=== PATIENT | male | born 1950 | race Caucasian/White ===

== ENCOUNTER 2021-10-21 08:38 | Outpatient (REF) | payer MEDICARE, SELFPAY ==
[2021-10-21 10:33] LABS: MANUAL DIFF FLAG NO
[2021-10-21 10:44] LABS: Basophils Absolute Auto 0.1 X10*3/uL (0.0-0.2); Basophils Percent Auto 0.9 % (0-2); Eosinophils Absolute Auto 0.3 X10*3/uL (0.0-0.4); Eosinophils Percent Auto 4.9 % (0-4); Hematocrit 36.5 % (42.0-52.0); Hemoglobin 11.7 g/dl (14.0-18.0); Imm Gran Abs Auto 0.03 X10*3/uL (0.00-0.03); Imm Gran Pct Auto 0.5 % (0.0-0.4); Lymphocytes Absolute Auto 1.4 X10*3/uL (1.2-4.9); Lymphocytes Percent Auto 21.8 % (20-40); Mean Corpuscular HGB Conc 32.1 g/dl (31.0-36.0); Mean Corpuscular Hemoglobin 30.3 pg (27.0-33.0); Mean Corpuscular Volume 94.6 fL (80.0-98.0); Mean Platelet Volume 9.7 fL (9.4-12.4); Monocytes Absolute Auto 0.5 X10*3/uL (0.1-1.2); Monocytes Percent Auto 8.1 % (2-11); Neutrophils Absolute Auto 4.1 x10*3/uL (2.0-8.3); Neutrophils Percent Auto 63.8 % (45-73); Platelet Count 499 X10*3/uL (160-400); Red Blood Count 3.86 X10*6/uL (4.60-5.80); Red Cell Distribution Width 14.6 % (11.0-16.0); White Blood Count 6.4 X10*3/uL (4.8-10.8)
[2021-10-21 11:18] LABS: Alanine Aminotransferase 31 U/L (0-40); Alkaline Phosphatase 87 U/L (39-117); Anion Gap 12 (12-20); Aspartate Amino Transferase 28 U/L (5-37); Bilirubin Total < 0.2 mg/dL (0.0-1.0); Blood Urea Nitrogen 23 mg/dL (9-16); Calcium 9.3 mg/dL (8.4-10.2); Carbon Dioxide 22 mmol/L (22-29); Chloride 108 mmol/L (96-108); Cholesterol 156 mg/dL; Estimated Glomerular Filt Rate > 60; Glucose Fasting 86 mg/dL (60-99); HDL Cholesterol 39 mg/dL; LDL Cholesterol Calculated 108 mg/dl; Potassium 4.9 mmol/L (3.3-5.1); Sodium 137 mmol/L (135-145); Total Protein 6.7 g/dL (6.5-8.0); Triglycerides 46 mg/dL
== END 2021-10-21 08:39 | disposition home or self-care (01) ==
LOC: HO.10HDL 08:38
PROVIDERS: Visit Provider Internal Medicine
DX: Z12.5 Encounter for screening for malignant neoplasm of prostate (principal); I12.9 Hypertensive chronic kidney disease with stage 1 through stage 4 chronic kidney disease, or unspecified chronic kidney disease; N18.9 Chronic kidney disease, unspecified; M19.90 Unspecified osteoarthritis, unspecified site
CPT/HCPCS: 36415; 80053; 80061; 84153; 85025

== ENCOUNTER → 2021-11-24 13:13 | Outpatient (REF) | payer MEDICARE, SELFPAY ==
--- NOTE | 2021-11-24 13:18 | CA_ITS ---
Transthoracic Echocardiogram Patient (Last, First, Middle): Rylan Cerna J Gender: Male Date of : 1950 Age: 71 Procedure Date: 11/24/2021 Procedure Type: Transthoracic Echocardiogram Location: OP Height: 175.26 cm Weight: 83.92 kg BSA: 2.00 m2 Heart Rate: 53 bpm BP: 145 / 80 mmHg Wire Chief: SB Referring MD: Riley Franco MD Symptoms: I34.0 MITRAL VALVE INSUFF, MURMUR Study Quality: Adequate ECG Rhythm: Bradycardia Conclusions: - The left ventricular systolic function is normal. The calculated ejection fraction is 60% by biplane method. - Evidence suggests grade II (moderate) diastolic dysfunction. - There is mild calcification of the aortic valve. - There is mild mitral annular calcification. - There is mild dilatation of the ascending aorta measuring 4.40 cm. Findings Left Ventricle Normal left ventricular cavity size. The left ventricular systolic function is normal. The calculated ejection fraction is 60% by biplane method. There is no evidence of regional wall motion abnormalities. E/E prime ratio is between 8 and 15 consistent with indeterminate filling pressures. Evidence suggests grade II (moderate) diastolic dysfunction. There is mild septal asymmetric hypertrophy. Right Ventricle Normal right ventricular cavity size and systolic function. Atria The left atrium is mildly dilated. The right atrium is normal in size. Aortic Valve There is a normal trileaflet aortic valve. There is mild calcification of the aortic valve. There is no aortic valve stenosis. There is no aortic valve regurgitation. Mitral Valve There is mild mitral annular calcification. There is trace mitral valve regurgitation. There is no mitral valve stenosis. Pulmonic Valve The pulmonic valve is likely normal. Tricuspid Valve Normal tricuspid valve structure. There is trace tricuspid valve regurgitation. There is no evidence of pulmonary hypertension. Great Vessels There is mild dilatation of the ascending aorta measuring 4.40 cm. Venous The inferior vena cava is normal in size and collapses greater than 50% with inspiration. Pericardium/Pleural There is no evidence of pericardial effusion. Prior Study Comparison No prior study available for comparison. Measurements 2D Linear Measurements IVSd: 1.16 0.6-0.9/0.6-1.0 cm LVIDd: 5.46 3.9-5.3/4.2-5.9 cm LVIDd Index: 2.73 2.4-3.2/2.2-3.1 cm/m2 LVIDs: 3.47 2.0-3.6 cm LVPWd: 0.65 0.7-1.1 cm LA Diam: 4.40 2.7-3.8/3.0-4.0 cm LAIDs Index: 2.20 1.5-2.3 cm/m2 LV Mass: 229.83 67-162/88-224 g LV Mass Index: 114.92 43-95/49-115 g/m2 LVOT Diam: 2.20 3.0+(-)1.3 cm 2D Systolic Function EF 4C: 61.00 >55% EF 2C: 58.90 >55% EF BiP: 60.40 >55% Mitral Valve MV Pk E: 0.75 MV PK A: 0.56 MV Decel Time: 204.00 E/A: 1.40 E'Lateral: 5.77 E'Medial: 4.57 E/E' Med: 16.50 E/E' Lat: 13.10 PHT: 60.00 MVA PHT: 3.67 Decel Clark: 3.69 Aortic Valve AoV Pk Ashutosh: 2.04 AoV Mn Ashutosh: 1.41 AoV VTI: 0.46 AoV Pk Grad: 17.00 Aov Mn Grad: 9.00 STACIA Cont.VTI: 1.96 LVOT LVOT Pk Ashutosh: 1.10 LVOT Mn Ashutosh: 0.70 LVOT VTI: 0.24 LVOT Pk Grad: 5.00 LVOT Mn Grad: 3.00 LVOT Diam: 2.20 LVOT Area: 3.80 Diastolic Function MV Pk E: 0.75 MV Pk A: 0.56 E/A: 1.40 E'Medial: 4.57 E/E' Med: 16.50 E' Laterial: 5.77 E/E' Lat: 13.10 Right Ventricle TAPSE (mm): 23.40 TVS' Ashutosh: 12.10 Tricuspid Valve RA Press: 3.00 Great Vessels Aorta Sinus of Valsalva: 3.60 2.0-3.5 cm Ao Asc: 4.40 2.1-3.4 cm Pulmonary Valve PV Pk Ashutosh: 0.90 Peak PV Grad: 3.00 Updated in Other Vendor System with Status of Final Henry Pham MD electronically signed on 11/24/2021 4:01:40 PM with status of Final
== END ==
LOC: HO.CARD 13:13
PROVIDERS: PCP Internal Medicine; Visit Provider Internal Medicine
DX: I34.0 Nonrheumatic mitral (valve) insufficiency (principal)
CPT/HCPCS: 93306

== ENCOUNTER 2023-03-16 12:09 | Outpatient (REF) | payer MEDICARE, SELFPAY ==
--- NOTE | ~2023-03-16 | XR_ITS ---
EXAMINATION: XR KNEES, BILATERAL CLINICAL INFORMATION: Bilateral knee pain. COMPARISON: None available. TECHNIQUE: 4 views each knee. FINDINGS: Right Knee: There is severe degenerative changes with marked narrowing of the medial, lateral and patellofemoral compartments with sclerosis and some mild osteophytes. A small right knee joint effusion is present. Some subchondral cysts are present in the tibia. Some minimal chondrocalcinosis is present in the lateral meniscus. No fractures or bony destructive lesions. Left Knee: Severe degenerative changes are seen in the medial and patellofemoral compartments with marked narrowing, sclerosis and osteophyte formation. The lateral compartment is relatively well preserved. A small joint effusion is present. No fractures or dislocations. XR/XR knee LT 4V IMPRESSION: Severe degenerative changes in both knees.
--- NOTE | ~2023-03-16 | XR_ITS ---
EXAMINATION: XR KNEES, BILATERAL CLINICAL INFORMATION: Bilateral knee pain. COMPARISON: None available. TECHNIQUE: 4 views each knee. FINDINGS: Right Knee: There is severe degenerative changes with marked narrowing of the medial, lateral and patellofemoral compartments with sclerosis and some mild osteophytes. A small right knee joint effusion is present. Some subchondral cysts are present in the tibia. Some minimal chondrocalcinosis is present in the lateral meniscus. No fractures or bony destructive lesions. Left Knee: Severe degenerative changes are seen in the medial and patellofemoral compartments with marked narrowing, sclerosis and osteophyte formation. The lateral compartment is relatively well preserved. A small joint effusion is present. No fractures or dislocations. XR/XR knee RT 4V IMPRESSION: Severe degenerative changes in both knees.
[2023-03-16 13:17] LABS: MANUAL DIFF FLAG NO
[2023-03-16 13:22] LABS: Basophils Absolute Auto 0.1 X10*3/uL (0.0-0.2); Basophils Percent Auto 1.4 % (0-2); Eosinophils Absolute Auto 0.2 X10*3/uL (0.0-0.4); Eosinophils Percent Auto 3.2 % (0-4); Hematocrit 40.1 % (42.0-52.0); Imm Gran Abs Auto 0.01 X10*3/uL (0.00-0.03); Imm Gran Pct Auto 0.2 % (0.0-0.4); Lymphocytes Percent Auto 17.1 % (20-40); Mean Corpuscular HGB Conc 32.4 g/dl (31.0-36.0); Mean Corpuscular Hemoglobin 31.2 pg (27.0-33.0); Mean Corpuscular Volume 96.2 fL (80.0-98.0); Monocytes Absolute Auto 0.7 X10*3/uL (0.1-1.2); Neutrophils Absolute Auto 3.7 x10*3/uL (2.0-8.3); Neutrophils Percent Auto 66.1 % (45-73); Platelet Count 360 X10*3/uL (160-400); Red Blood Count 4.17 X10*6/uL (4.60-5.80); Red Cell Distribution Width 13.1 % (11.0-16.0); White Blood Count 5.7 X10*3/uL (4.8-10.8)
[2023-03-16 13:50] LABS: Alanine Aminotransferase 26 U/L (0-40); Albumin Level 4.4 g/dL (3.5-5.0); Alkaline Phosphatase 72 U/L (39-117); Anion Gap 13 (12-20); Aspartate Amino Transferase 27 U/L (5-37); Bilirubin Total 0.2 mg/dL (0.0-1.0); Blood Urea Nitrogen 18 mg/dL (9-16); Calcium 9.6 mg/dL (8.4-10.2); Carbon Dioxide 25 mmol/L (22-29); Chloride 106 mmol/L (96-108); Cholesterol 156 mg/dL (<200); Estimated Glomerular Filt Rate > 60; Glucose Random 89 mg/dL (60-115); Potassium 5.4 mmol/L (3.3-5.1); Sodium 139 mmol/L (135-145); Total Protein 7.4 g/dL (6.5-8.0); Uric Acid 6.8 mg/dL (3.4-7.0)
[2023-03-16 14:06] LABS: Prostate Specific Antigen Scr 0.23 ng/mL (<0.05-4.0); Thyroid Stimulating Hormone 2.33 uIU/mL (0.32-4.0)
[2023-03-16 14:21] LABS: Appearance Urine Clear; Color Urine Yellow; Glucose Urine UA Negative (Negative); Leukocyte Esterase Urine Trace (Negative); Nitrite Urine Negative (Negative); PH 5.5 (5.0-9.0); UMIC TRIGGER UA YES; Urine Blood Negative (Negative); Urine Ketones Negative (Negative); Urine Protein 30 (1+) mg/dL (Neg-Trace)
[2023-03-16 14:34] LABS: Bacteria Urine None Seen (None Seen); Hyaline Casts Urine 0-2 /LPF (0-2); RBC Urine 0-2 /HPF (0-2); Squamous Epithelial Cell Urine 0-2 /HPF (0-2); WBC Urine 0-5 /HPF (0-5)
== END 2023-03-16 12:10 | disposition home or self-care (01) ==
LOC: HO.10HDL 12:09
PROVIDERS: PCP Internal Medicine; Visit Provider Internal Medicine
DX: M25.562 Pain in left knee (principal); M25.561 Pain in right knee; D64.9 Anemia, unspecified; I10 Essential (primary) hypertension; R63.5 Abnormal weight gain; Z12.5 Encounter for screening for malignant neoplasm of prostate
CPT/HCPCS: 36415; 73564; 80053; 81001; 81003; 82465; 84153; 84443; 84550; 85025

== ENCOUNTER 2023-03-29 12:16 | Outpatient (AMB) | payer MEDICARE, SELFPAY ==
--- NOTE | 2023-03-29 12:18 | MHC.OFFVIS ---
Intake Vital Signs 03/29/23 12:24 Height 5 ft 9.5 in Weight 207 lb BMI 30.1 Intake Visit Reasons: MEDICAL SCHEDULER-B/L knee OA Intake Note: Rylan is a 73 year old male who presents today as a new patient for evaluation of bilateral O.A knee pain. Patient reports that the right knee is worse than the left, he explains that he has pain in the right knee but the left is relatively asyptomatic. 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 Wear Knee braces ,which are helpful. Has tried cortisone injections many years ago. Has occasional flairs of Gout, which is what he originally thought was the cause of his pain. About 16 years ago he fell out of bed. Previously seen with Dr. Flanagan who recommended bilateral TKA. Reports another fall bout 3 years ago and had a right RENETTA with Dr. Ramsay. Patient states that his right knee pain is interfering with his activities of daily living and his ability to sleep well through the night. He wishes to hold off on right total knee replacement surgery for as long as possible. He has had cortisone injections in the past which gave him minimal relief. He has not had a viscosupplementation injection. Allergies No Known Allergies [No Known Allergies*] Allergy (Unverified 03/29/23 12:25) Medication List - Last Reconciled 03/29/23 by Jose Gross MD amlodipine 5 mg PO DAILY PFSH Medical History (Updated 03/29/23 @ 13:16 by Jose Gross MD) Inguinal hernia HTN (hypertension) Surgical History (Updated 08/27/22 @ 05:54 by Daria Jewell RN) Hx of hand surgery Hx of total hip arthroplasty Hx of tonsillectomy Social History (Updated 03/29/23 @ 12:26 by Estefani Hernandez CMA) Current occupational status: employed Current occupation: [employer] Physical Exam Vital Signs: BMI result Body Mass Index 30.1 Const Other: Well-nourished well-developed very friendly male awake alert and oriented x3 in no acute distress Extrem Other: Bilateral lower extremity examination shows good capillary refill, no skin lesions noted, normal sensation light touch Bilateral knee examination shows minimal effusions, palpable crepitus with range of motion, pain with range of motion, range of motion from -3 degrees to 115 degrees, no instability Results Reviewed Results Reviewed: X-rays of the patient's bilateral knee show severe joint space narrowing, subchondral sclerosis, no acute bony abnormalities Assessment & Plan Assessment & Plan (1) Arthritis of left knee: Code(s): M17.12 - Unilateral primary osteoarthritis, left knee Plan: Mr. Cerna presents with bilateral knee pains, right greater than left, due to degenerative joint disease. I had a lengthy discussion with the patient regarding the treatment options. He wishes to hold off on surgery for as long as possible. I agree with this plan. He has not gotten good relief from cortisone injections in the past. Thus, I will see whether not the patient's insurance company will cover a viscosupplementation injection for his right knee. At this point his left knee pain is tolerable to him. I will see him back once the injection is available. If he fails continued non operative treatments we will further discuss the risks and benefits of total knee replacement surgery. Feel free to call me at any time should questions regarding his orthopedic management arise. Thank you very much for asking me to see this very friendly gentleman. I spent 22 minutes in reviewing the patient's records and imaging studies, seeing the patient and documenting in the medical record. (2) Arthritis of right knee: Code(s): M17.11 - Unilateral primary osteoarthritis, right knee Coding Level of Care Code New Pt Level 2 (28717) Diagnoses Arthritis of left knee M17.12 Arthritis of right knee M17.11
[2023-03-29 12:24] VITALS: BMI 30.1
== END 2023-03-29 12:51 | disposition home or self-care (01) ==
PROVIDERS: PCP Internal Medicine; Visit Provider Orthopaedic Surgery
DX: M17.0 Bilateral primary osteoarthritis of knee (principal)
CPT/HCPCS: 99202

== ENCOUNTER → 2023-03-29 12:16 | Outpatient (BNVA) | payer MEDICARE, SELFPAY | PROVIDERS: PCP Internal Medicine; Visit Provider Orthopaedic Surgery | DX: M17.0 Bilateral primary osteoarthritis of knee (principal) | CPT/HCPCS: 99202 ==

== ENCOUNTER 2023-04-05 09:57 | Outpatient (AMB) | payer MEDICARE, SELFPAY ==
--- NOTE | 2023-04-05 10:00 | A.OFFVIS_ITS ---
Intake Vital Signs 04/05/23 10:09 Height 5 ft 9.5 in Weight 207 lb BMI 30.1 Intake Visit Reasons: OV - Right Knee Synvisc - One Intake Note: Rylan a 73 year old male presents with complaints of progressively worsening bilateral knee pains, right greater than left. He describes his right knee pain as sharp and severe in nature. He does walk with a walker because of his pain. His pain has gotten worse over the last few years in spite of continued non operative treatments. He has done physical therapy which aggravated his pain. He has also had cortisone injections in the past which gave him minimal relief. He has tried Tylenol and anti-inflammatory medicines which gave him only mild relief. He would like to hold off on right total knee replacement surgery for as long as possible. Allergies No Known Allergies [No Known Allergies*] Allergy (Unverified 04/05/23 10:09) [facility] Medical History (Updated 03/29/23 @ 13:16 by Jose Gross MD) Inguinal hernia HTN (hypertension) Surgical History Hx of hand surgery Hx of total hip arthroplasty Hx of tonsillectomy Social History Current occupational status: employed Current occupation: [employer] Physical Exam Vital Signs: BMI result Body Mass Index 30.1 Const Other: Well-nourished well-developed very friendly male awake alert and oriented x3 in no acute distress Extrem Other: Bilateral lower extremity examination shows good capillary refill, no skin lesions noted, normal sensation light touch Right knee examination shows a mild effusion, palpable crepitus with range of motion, pain with range of motion, range of motion from -3 degrees to 115 degrees, no instability Office Procedures Joint Injection/Drain Joint Injection/Drain Primary Site: right knee Prep: site was prepped using aseptic technique Injected: 1% plain lidocaine and other (Synvisc One 6 ml) Procedure: The patient tolerated the procedure well Coding 89288 - Large joint Procedure code (CPT) selection complete Results Reviewed Results Reviewed: 04/05/23 10:00 Hylan G-F 20 [Synvisc-One] 48 mg INTRAARTIC .STK-MED ONE Lidocaine HCl 2 % MPF [Xylocaine 2 % MPF] 5 ml .ROUTE .STK-MED ONE X-rays of the patient's right knee show joint space narrowing, subchondral sclerosis, no acute bony abnormalities Assessment & Plan Assessment & Plan (1) Arthritis of right knee: Code(s): M17.11 - Unilateral primary osteoarthritis, right knee Plan: Mr. Cerna presents with bilateral knee pains, right greater than left, due to degenerative joint disease. I had a lengthy discussion with the patient regarding the treatment options. He wishes to hold off on right total knee replacement surgery for as long as possible. I agree with this plan. He has not gotten good relief from cortisone injections in the past. Thus, the risks and benefits of a viscosupplementation injection were discussed at length with the patient. The patient wished to proceed. He tolerated the right knee Synvisc 1 injection well. He will continue with his activity modifications. He will follow up with me on an as-needed basis should his symptoms not plateau at an unacceptable level over the next few months. Feel free to call me at any time should questions regarding his orthopedic management arise. I spent 22 minutes in reviewing the patient's records and imaging studies, seeing the patient and documenting in the medical record. Orders: Orders AMB Joint Injection/Aspiration Today M17.11 - Unilateral primary osteoarthritis, right knee Coding Level of Care Code Est Pt Level 2 (72435) Diagnoses Arthritis of right knee M17.11 CPT Codes Coding - 28438 Large joint: 82364 - Large joint ([id number])
[2023-04-05 10:09] VITALS: BMI 30.1
== END 2023-04-05 10:30 | disposition home or self-care (01) ==
PROVIDERS: PCP Internal Medicine; Visit Provider Orthopaedic Surgery
DX: M17.11 Unilateral primary osteoarthritis, right knee (principal)
CPT/HCPCS: 20610; 99213

== ENCOUNTER → 2023-04-05 09:57 | Outpatient (BNVA) | payer MEDICARE, SELFPAY | PROVIDERS: PCP Internal Medicine; Visit Provider Orthopaedic Surgery | DX: M17.11 Unilateral primary osteoarthritis, right knee (principal) | CPT/HCPCS: 20610; 99212; J7325 ==

== ENCOUNTER 2023-07-05 09:33 | Outpatient (AMB) | payer MEDICARE, SELFPAY ==
[2023-07-05 09:34] VITALS: BMI 30.1
--- NOTE | 2023-07-05 09:34 | A.OFFVIS_ITS ---
Intake Vital Signs 07/05/23 09:34 Height 5 ft 9.5 in Weight 207 lb BMI 30.1 Intake Visit Reasons: OV - Right Knee Synvisc - One follow up Intake Note: Rylan is a 73 year old male who presents for a follow up after his Synvisc-One injection of his Right knee. Patient reports his knee is feeling great and has no problems. He states is continuing to wear a brace which also helps. He does take Tylenol as needed. He denies any fevers or chills. Allergies No Known Allergies [No Known Allergies*] Allergy (Verified 07/05/23 09:39) Medication List - Last Reconciled 07/05/23 by Jose Gross MD amlodipine 5 mg PO DAILY PFSH Medical History Inguinal hernia HTN (hypertension) Surgical History Hx of hand surgery Hx of total hip arthroplasty Hx of tonsillectomy Social History Current occupational status: employed Current occupation: [employer] Physical Exam Vital Signs: BMI result Body Mass Index 30.1 Const Other: Well-nourished well-developed very friendly male awake alert and oriented x3 in no acute distress Extrem Other: Bilateral lower extremity examination shows good capillary refill, no skin lesions noted, normal sensation light touch Right knee examination shows a minimal effusion, palpable crepitus with range of motion, mild pain with range of motion, no instability Results Reviewed Results Reviewed: X-rays of the patient's right knee show joint space narrowing, subchondral sclerosis, no acute bony abnormalities Assessment & Plan Assessment & Plan (1) Arthritis of right knee: Code(s): M17.11 - Unilateral primary osteoarthritis, right knee Plan Mr. Cerna presents with right knee pain due to degenerative joint disease. I had a lengthy discussion with the patient regarding the treatment options. At this point the patient's symptoms are tolerable to him. We will hold off on another injection. He will continue with his activity modifications. He will follow up with me on an as-needed basis should his symptoms worsen in any way. Feel free to call me at any time should questions regarding his orthopedic management arise. I spent 22 minutes in reviewing the patient's records and imaging studies, seeing the patient and documenting in the medical record. Coding Level of Care Code Est Pt Level 2 (63585) Diagnoses Arthritis of right knee M17.11
== END 2023-07-05 10:04 | disposition home or self-care (01) ==
PROVIDERS: PCP Internal Medicine; Visit Provider Orthopaedic Surgery
DX: M17.11 Unilateral primary osteoarthritis, right knee (principal)
CPT/HCPCS: 99213

== ENCOUNTER → 2023-07-05 09:33 | Outpatient (BNVA) | payer MEDICARE, SELFPAY | PROVIDERS: PCP Internal Medicine; Visit Provider Orthopaedic Surgery | DX: M17.11 Unilateral primary osteoarthritis, right knee (principal) | CPT/HCPCS: 99212 ==

== ENCOUNTER 2025-01-07 13:00 | Outpatient (AMB) | payer MEDICARE, SELFPAY ==
--- NOTE | 2025-01-07 13:01 | A.OFFPC_ITS ---
Vital Signs 01/07/25 13:03 Height 5 ft 9 in Weight 93.44 kg BMI 30.4 BP 160/94 H Respiration 16 Pulse 63 Pulse Source Pulse Oximeter Temp 97.8 F Temp Source Temporal Artery Scan Pulse Oximetry (%) 98 Oxygen Delivery Method Room Air Intake Visit Reasons: Annual / Dr Franco Core Composer Machine Tender Required: No Accompanied by: Self / Same As Patient Allergies No Known Allergies (No Known Allergies*) Allergy (Verified 01/07/25 13:02) Medication List - Last Reconciled 01/07/25 by ANN Lopez amlodipine 5 mg PO DAILY Tobacco use date assessed: 01/07/25 Fall risk assessment: No Falls in past year Last assessed Fall Risk: 01/07/25 Dental Screening Dental Screen Date: 01/07/25 Did you have a dental visit in the last 12 months?: Yes Did you have a dental problem in the last 6 months where you did not have access to dental care?: No Was dental information given to patient?: Yes HPI HPI Comments History of Present Illness Details 74-year-old male with history of osteoar thritis and hypertension presents to the office today for management of chronic conditions and to establish care as well as for annual physical exam. Lives with spouse and feels safe there. 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 Minimal exercises, more aerobics. Follows healthy diet overall, but does have some unhealthy snacks during the week. Limits calories and increased protein. No history of cigarette smoking, but does smoke a pipe. No drugs. No alcohol. Hypertension-compliant with amlodipine 5 mg daily. Initial blood pressure in the office 160/94, restarted by urology (Venancio). Previously on lisinopril and diuretic, then amlodipine but was dc'd by prior pcp. Osteoarthritis- gel injections year ago still with good relief. Concerns: LLE edema longstanding Health maintenance: Has never undergone screening colonoscopy ROS: General: No fevers, malaise, unintentional weight loss HEENT: No blurred vision, diplopia. No sore throat, nasal congestion, rhinorrhea, sinus pain, ear pain. No hearing loss Neck - no adenopathy Cardiovascular: No chest pain, palpitations, or leg edema Respiratory: No shortness of breath, wheezing, cough GI: No dysphagia, odynophagia, globus sensation. No abdominal pain, nausea, vomiting, diarrhea, constipation, melena, hematochezia : No dysuria, hematuria, increased urinary frequency, decreased urinary output. No testicular swelling or pain. No penile discharge MSK: No myalgia, back pain, arthralgias Neuro: No headaches, weakness, paresthesias Psych: no depression/anxiery. No AH/VH. No SI/HI Skin: No rashes or lesions EXAM: Constitutional - Awake and Alert, No apparent distress Eyes - PERRLA, EOMI. Anicteric Ears - external ears normal, canals clear, TMs intact and pearly wilkinson with good cone of light Nose- septum midline, nares clear, no sinus tenderness Mouth/throat- mucosa moist, tongue and uvula midline, no erythema/edema or tonsillar adenopathy. Neck-trachea midline, thyroid symmetric without palpable nodules, no adenopathy Cardiovascular - S1S2, RRR, No edema Respiratory - Normal lung expansion, Normal respiratory effort, No respiratory distress, CTA bilaterally Gastrointestinal - NT / ND; +BS; No rebound or guarding - No CVA tenderness Extremities - no calf tenderness bilaterally, no swelling Musculoskeletal - Normal inspection, normal ROM Skin - Warm/Dry, no concerning lesions Neurological - Alert & oriented x3, CN II-XII in tact, 5/5 strength BUE and BLE, 2+ patellar reflexes, sensation intact Psychological - Appropriate affect [facility] Medical History (Updated 01/07/25 @ 13:25 by ANN Lopez) Inguinal hernia HTN (hypertension) Surgical History Hx of hand surgery Hx of total hip arthroplasty Hx of tonsillectomy Social History Housing: House Tobacco use type: Pipe (daily) Current occupational status: employed and retired Current occupation: [employer] Cognitive needs: No Hearing needs: No Vision needs: Yes (Reading glasses) Questionnaire PHQ-9 Over the last 2 weeks, how often have you been bothered by any of the following problems? 1. Little interest or pleasure in doing things: not at all 2. Feeling down, depressed, or hopeless: not at all 3. Trouble falling or staying asleep, or sleeping too much: not at all 4. Feeling tired or having little energy: not at all 5. Poor appetite or overeating: not at all 6. Feeling bad about yourself - or that you are a failure or have let yourself or your family down: not at all 7. Trouble concentrating on things, such as reading the newspaper or watching television: not at all 8. Moving or speaking so slowly that other people could have noticed. Or the opposite - being so fidgety or restless that you have been moving around a lot more than usual: not at all 9. Thoughts that you would be better off or of hurting yourself in some way: not at all Total score: 0 Source: Developed by Drs. Volodymyr Astudillo, Sandra Healy, Nathaniel Card and colleagues, with an educational beau from [employer]. Thrive Questionnaire Date Thrive assessed: 01/07/25 I am a: Patient What is your living situation today?: I have a steady place to live Within the past 12 months, did the food you bought not last and you didn't have the money to get more?: Never true Within the past 12 months, did you worry whether your food would run out before you got money to buy more?: Never true Do you have trouble paying for medicines?: No Do you have trouble getting transportation to medical appointments?: No Do you have trouble paying your heating and electricity bill?: No Do you have trouble taking care of your child, family member or friend?: No Do you have trouble with day-to-day activities such as bathing, preparing meals, shopping, managing finances, etc.?: No Are you currently unemployed and looking for a job?: No Are you interested in more education?: No Please select the resources that you would like help with: None THRIVE Score: 0 MINI-7 AMB Questionnaire MINI-7 Date MINI - 7 assessed: 01/07/25 Feeling nervous, anxious, or on edge: 0 = Not at all Not being able to stop or control worryin = Not at all Worrying too much about different things: 0 = Not at all Trouble relaxin = Not at all Being so restless that it is hard to sit still: 0 = Not at all Becoming easily annoyed or irritable: 0 = Not at all Feeling afraid as if something awful might happen: 0 = Not at all Total MINI-7 score (0-4 normal; 5-9 mild; 10-14 moderate; 15-21 severe): 0 Source: Developed by Drs. Volodymyr Astudillo, Sandra Healy, Nathaniel Card and colleagues, with an educational beau from [employer]. Physical exam (Primary Care) Vital Signs: Last Vital Signs Temp 97.8 F 01/07/25 13:03 Pulse 63 01/07/25 13:03 Resp 16 01/07/25 13:03 BP 160/94 H 01/07/25 13:03 Pulse Ox 98 01/07/25 13:03 Oxygen Delivery Method Room Air 01/07/25 13:03 BMI result Body Mass Index 30.4 Tobacco/Smoking Status: Tobacco use Status Tobacco use date assessed 01/07/25 01/07/25 13:10 Tobacco use type Pipe (daily) 01/07/25 13:10 PHQ-9: PHQ-9 Score PHQ-9: Total score 0 01/07/25 13:38 Thrive Assessment: Date of Thrive Assessment Date Thrive assessed 01/07/25 01/07/25 13:38 Coding Level of Care Code Est Pt Level 3 (75598) Est Pt Prev Care >65y(32083) Diagnoses Routine medical exam Z00.00 HTN (hypertension) I10 Petechiae R23.3 Assessment & Plan Assessment & Plan (1) Routine medical exam: Code(s): Z00.00 - Encounter for general adult medical examination without abnormal findings Plan: Plan as below (2) HTN (hypertension): Code(s): I10 - Essential (primary) hypertension Category: Medical Plan: Uncontrolled. Add hctz. May also help his edema (possibly r/t amlodipine) (3) Petechiae: Code(s): R23.3 - Spontaneous ecchymoses Category: Medical Plan: Likely senile. Check CBC and bleeding times Plan Follow up for bp check. Labs to be completed today. Referred for colo Routine screening labs as ordered below Continue with screening colonoscopies and PSA Continue following for annual skin exams and use sun protection Annual eye exams Wear seat belt in car Recommend regular exercise and healthy diet Follow up in 2-3 weeks for bp check Orders: Orders Basic Metabolic Panel 01/07/25 I10 - Essential (primary) hypertension, Z00.00 - Encounter for general adult medical examination without abnormal findings Complete Blood Count Auto Diff 01/07/25 I10 - Essential (primary) hypertension, Z00.00 - Encounter for general adult medical examination without abnormal findings Prothrombin Time INR 01/07/25 R23.3 - Spontaneous ecchymoses Lipid Panel 01/07/25 I10 - Essential (primary) hypertension, Z00.00 - Encounter for general adult medical examination without abnormal findings Liver Panel 01/07/25 I10 - Essential (primary) hypertension, Z00.00 - Encounter for general adult medical examination without abnormal findings Prostate Specific Antigen 01/07/25 I10 - Essential (primary) hypertension, Z00.00 - Encounter for general adult medical examination without abnormal findings Referrals Gastroenterology Referral Z00.00 - Encounter for general adult medical examination without abnormal findings, Z12.11 - Encounter for screening for malignant neoplasm of colon Medications: New hydrochlorothiazide 25 mg PO DAILY 90 tabs 1RF
[2025-01-07 13:03] VITALS: BP 160/94; PULSE 63; RESP 16; TEMP 36.6; O2SAT 98; BMI 30.4
--- OUTSIDE RECORDS SUMMARY | 2025-01-07 13:54 | XMS_ITS | Patient Health Record ---
Author Organization [facility] Address [address] [place] [address] Care Team Providers Care Cigarette Inspector Name Role Phone Joan (RETIRED) Riley VILLALOBOS Primary Care Provide r Unavailable Volodymyr Evans Unavailable [phone] Allergies No Known Allergies Reason For Referral No Information Medications Medication SIG (Take, Route, Frequency, Duration) Notes Start Date End Date Status amLODIPine Besylate 5 MG Oral for 90 Active Immunizations Vaccine Route Administration Date Status Comme nts Influenza Unknown 03/09/2022 Refused Social History Tobacco Use: Social History Observation Description Date Details (start date - stop date) Never Smoker NA - NA Tobacco Use/Smoking Question Answer Notes Patient is a nonsmoker Alcohol Screen Question Answer Notes Did you have a drink containing alcohol in the p ast year? No Points 0 Interpretation Negative Section Notes: Occasional pipe smoker . No significant alcohol Problems Problem Type SNOMED Code ICD Code Onset Dates Problem Status W/U Status Risk Notes Problem Colon cancer screening (726661462) Colon cancer screening (Z12.11) Active confirmed Problem Preprocedural examination (536434491542841) Preprocedural examination (Z01.818) Active confirmed Plan Of Treatment Future Test Test Name Order Date COLONOSCOPY 03/09/2022 Insurance Providers Payer Name Payer Address Payer Phone Subscriber Number Group Number Insured Name Patient Relationship to Insured Coverage Start Date Coverage End Date [facility] [address] [place], [place] [id number] [phone] [id number] ZACKERY JIMENEZ Self - patient is the insured Medical (General) History Medical History History ICD Code Hypertension Denies [place],DM,CVA,Lung disease,renal dise ase [place] [address] [place] Surgical History Surgery Date(Month/Year) Tonsillectomy 1957 Left inguinal hernia repair with a mesh 2019 Right hip replacement after a fracture 2 020 Hand surgery/tendon repair 1983
--- OUTSIDE RECORDS SUMMARY | 2025-01-07 13:54 | XMS_ITS | Clinical Summary ---
Author Organization [facility] Address [address] [place] [address] Care Team Providers Care Field Project Manager Name Role Phone Riley Franco MD Primary Care Provider [phone] Allergies No known active allergies Medications amLODIPine (NORVASC) 5 MG tablet TAKE 1 TABLET(5 MG) BY MOUTH 1 TIME EACH DAY 90 tablet 3 07/13/2024 Active Active Problems Problem Noted Date Diagnosed Date Stage 3a chronic kidney disease 09/01/2020 Essential hypertension 09/01/2020 Gout 09/01/2020 Acute nontraumatic kidney injury 08/31/2020 Family History Medical History Relation Comments Hypertension Father Gout Sibling Relation Status Comments Father Mother Sibling Social History Tobacco Use Types Packs/Day Years Used Date Smoking Tobacco: Smoker, Current Status Unknown Tobacco Cessation:Ready to Q uit: No Alcohol Use Standard Drinks/Week Comments No 0 (1 standard drink = 0.6 oz pur e alcohol) Sex and Gender Information Value Date Recorded Sex Assigned at Not on file Legal Sex Male 4:54 PM EST Gender Identity Not on file Sexual Orientation Not on file Last Filed Vital Signs Vital Sign Reading Time Taken Comments Blood Pressure 138/80 09/01/2020 1:34 PM EDT Pulse 62 09/01/2020 1:34 PM EDT Temperature - - Respiratory Rate - - Oxygen Saturation 97% 09/01/2020 1:34 PM EDT Inhaled Oxygen Concentration - - Weight 81.6 kg (179 lb 12.8 oz) 09/01/2020 1:34 PM EDT Height 185.4 cm (6' 1 ) 03/06/2019 12:0 0 PM EDT Body Mass Index 23.72 03/06/2019 12:00 PM EDT Plan of Treatment Health Maintenance Due Date Last Done Comments Pneumococcal Vaccine: 50+ Ye ars (1 of 2 - PCV) 1971 Colorectal Cancer Screening: Annual FOBT 2001 Colorectal Cancer Screening: Colonoscopy 2001 Colorectal Cancer Screening: Sigmoidoscopy 2001 Influenza Vaccine (#1) 2025 Hepatitis B Vaccine Aged Out No longe r eligible based on patient's age to complete this topic Insurance [facility] Care Teams Field Project Manager Relationship Specialty Start Date End Date Riley Franco MD [address] [place] PCP - General 06/02/20
== END 2025-01-07 13:39 | disposition home or self-care (01) ==
LOC: HO.HMCHD 13:00
PROVIDERS: PCP Physician Assistant; Visit Provider Physician Assistant
DX: Z00.00 Encounter for general adult medical examination without abnormal findings (principal); I10 Essential (primary) hypertension; R23.3 Spontaneous ecchymoses

== ENCOUNTER → 2025-01-07 13:00 | Outpatient (BNVA) | payer MEDICARE, SELFPAY | PROVIDERS: PCP Physician Assistant; Visit Provider Physician Assistant | DX: Z00.00 Encounter for general adult medical examination without abnormal findings (principal); Z76.89 Persons encountering health services in other specified circumstances; R60.0 Localized edema; R23.3 Spontaneous ecchymoses; I10 Essential (primary) hypertension; M19.90 Unspecified osteoarthritis, unspecified site; Z79.899 Other long term (current) drug therapy; Z13.39 Encounter for screening examination for other mental health and behavioral disorders; Z13.30 Encounter for screening examination for mental health and behavioral disorders, unspecified | CPT/HCPCS: 96127; 99202; 99387 ==

== ENCOUNTER 2025-01-24 07:21 | Outpatient (REF) | payer MEDICARE, SELFPAY ==
--- OUTSIDE RECORDS SUMMARY | 2025-01-24 07:25 | XMS_ITS | Clinical Summary ---
Author Organization [facility] Address [address] [place] [address] Care Team Providers Care Press Loader Name Role Phone Riley Franco MD Primary Care Provider [phone] Allergies No known active allergies Medications amLODIPine [...] patient's age to complete this topic Insurance [facility] Care Teams Press Loader Relationship Specialty Start Date End Date Riley Franco MD [address] [place] PCP - General 06/02/20
--- OUTSIDE RECORDS SUMMARY | 2025-01-24 07:25 | XMS_ITS | Patient Health Record ---
Author Organization [facility] Address [address] [place] [address] Care Team Providers Care Gyro Mechanic Name Role Phone Joan (RETIRED) Riley VILLALOBOS Primary Care Provide r Unavailable Volodymyr Evans Unavailable [phone] Allergies No Known Allergies Reason For Referral [...] Status Risk Notes Problem Colon cancer screening (799164851) Colon cancer screening (Z12.11) Active confirmed Problem Preprocedural examination ([id number]) Preprocedural examination (Z01.818) Active confirmed Plan Of Treatment Future Test Test Name Order Date COLONOSCOPY 03/09/2022 Insurance Providers Payer Name Payer Address Payer Phone Subscriber Number Group Number Insured Name Patient Relationship to Insured Coverage Start Date Coverage End Date [facility] [address] [place], [place] [id number] ZACKERY JIMENEZ Self - patient is the insured Medical (General) History Medical History History ICD Code Hypertension Denies [place],DM,CVA,Lung disease,renal dise ase [place] [address] [place] Surgical History Surgery Date(Month/Year) Tonsillectomy 1957 Left inguinal hernia repair with a mesh 2019 Right hip replacement after a fracture 2 020 Hand surgery/tendon repair 1983
[2025-01-24 10:36] LABS: MANUAL DIFF FLAG NO
[2025-01-24 10:40] LABS: Hematocrit 40.2 % (42.0-52.0); Hemoglobin 13.7 g/dl (14.0-18.0); Imm Gran Abs Auto 0.02 X10*3/uL (0.00-0.03); Imm Gran Pct Auto 0.3 % (0.0-0.4); Lymphocytes Absolute Auto 2.3 X10*3/uL (1.2-4.9); Mean Corpuscular HGB Conc 34.1 g/dl (31.0-36.0); Mean Corpuscular Hemoglobin 31.8 pg (27.0-33.0); Mean Corpuscular Volume 93.3 fL (80.0-98.0); NRBC Abs Auto 0.000 X10*3/uL (0.0-0.012); NRBC Pct Auto 0.0 /100WBC (0.0-0.2); Platelet Count 364 X10*3/uL (160-400); Red Blood Count 4.31 X10*6/uL (4.60-5.80); White Blood Count 7.6 X10*3/uL (4.8-10.8)
[2025-01-24 10:45] LABS: INTERNATIONAL NORM RATIO 0.9 (0.9-1.1); Prothrombin Time 10.4 SEC (10.9-12.4)
[2025-01-24 11:03] LABS: Alanine Aminotransferase 36 U/L (0-40); Albumin Level 4.5 g/dL (3.5-5.0); Alkaline Phosphatase 85 U/L (39-117); Anion Gap 16 (12-20); Aspartate Amino Transferase 36 U/L (5-37); Blood Urea Nitrogen 25 mg/dL (9-16); Calcium 9.0 mg/dL (8.4-10.2); Carbon Dioxide 25 mmol/L (22-29); Chloride 107 mmol/L (96-108); Cholesterol 177 mg/dL (<200); Estimated Glomerular Filt Rate 46; HDL Cholesterol 33 mg/dL (>40); Potassium 4.5 mmol/L (3.3-5.1); Sodium 143 mmol/L (135-145); Total Protein 7.3 g/dL (6.5-8.0); Triglycerides 96 mg/dL (<150)
[2025-01-24 11:20] LABS: Prostate Specific Antigen 0.19 ng/mL (<0.05-4.0)
== END 2025-01-24 07:22 | disposition home or self-care (01) ==
LOC: HO.10HDL 07:21
PROVIDERS: Visit Provider Physician Assistant
DX: Z00.00 Encounter for general adult medical examination without abnormal findings (principal); I10 Essential (primary) hypertension; R23.3 Spontaneous ecchymoses; Z12.5 Encounter for screening for malignant neoplasm of prostate
CPT/HCPCS: 36415; 80048; 80061; 80076; 84153; 85025; 85610

== ENCOUNTER 2025-01-28 11:02 | Outpatient (AMB) | payer MEDICARE, SELFPAY ==
--- NOTE | 2025-01-28 11:16 | MHC.PC.OV ---
Vital Signs 01/28/25 11:17 01/28/25 11:55 Height 5 ft 9 in BP 150/90 H 138/80 Respiration 16 Pulse 77 Pulse Source Pulse Oximeter Temp 97.7 F Temp Source Temporal Artery Scan Pulse Oximetry (%) 99 Oxygen Delivery Method Room Air Intake Visit Reasons: 3 week F/U Station Installer Required: No Accompanied by: Self / Same As Patient Allergies No Known Allergies (No Known Allergies*) Allergy (Verified 01/28/25 11:16) Tobacco use date assessed: 01/07/25 Dental Screening Dental Screen Date: 01/07/25 HPI HPI Comments History of Present Illness Details 74-year-old male with history of hypertension, hyperlipidemia presenting to the office today for blood pressure follow-up. HTN- At that visit, blood pressure was elevated. Hydrochlorothiazide 25 mg daily was added to amlodipine 5 mg daily. He has been experiencing some edema which has significantly improved with the addition of diuretic. Blood pressure in the office today is controlled on recheck 138/80. He did have labs completed prior to visit with slight drop in GFR to 46 with bump in creatinine to 1.51 from 1.13, however previous labs were collected 2 years ago, no recent comparison available. HLD- last LDL 125, not on statin Concerns: Itchy eyes-wakes up with itchy watery eyes in the morning, every morning. He will use a warm cloth with full resolution ROS: General: No fevers, malaise, unintentional weight loss HEENT: No blurred vision, diplopia. No sore throat, nasal congestion, rhinorrhea, sinus pain, ear pain. See HPI Cardiovascular: No chest pain, palpitations, or leg edema Respiratory: No shortness of breath, wheezing, cough GI: No abdominal pain, nausea, vomiting, diarrhea, constipation, melena, hematochezia : No dysuria, hematuria, increased urinary frequency, decreased urinary output MSK: No myalgia, back pain Neuro: No headaches, weakness, paresthesias Skin: No rashes or lesions EXAM: Constitutional - Awake and Alert, No apparent distress Eyes - PERRL Cardiovascular - S1S2, RRR, No edema Respiratory - Normal lung expansion, Normal respiratory effort, No respiratory distress, CTA bilaterally Extremities - no calf tenderness bilaterally, no swelling Skin - Warm/Dry Neurological - Alert & oriented x3 Psychological - Appropriate affect [facility] Medical History (Updated 01/28/25 @ 12:01 by ANN Lopez) Elevated serum creatinine HLD (hyperlipidemia) Inguinal hernia HTN (hypertension) Surgical History Hx of hand surgery Hx of total hip arthroplasty Hx of tonsillectomy Social History Housing: House Tobacco use type: Pipe (daily) Current occupational status: employed and retired Current occupation: [employer] Cognitive needs: No Hearing needs: No Vision needs: Yes (Reading glasses) Questionnaire Thrive Questionnaire Date Thrive assessed: 01/07/25 MINI-7 AMB Questionnaire MINI-7 Date MINI - 7 assessed: 01/07/25 Source: Developed by Drs. Volodymyr Astudillo, Sandra Healy, Nathaniel Card and colleagues, with an educational beau from [employer]. Physical exam (Primary Care) Vital Signs: Last Vital Signs Temp 97.7 F 01/28/25 11:17 Pulse 77 01/28/25 11:17 Resp 16 01/28/25 11:17 BP 150/90 H 01/28/25 11:17 Pulse Ox 99 01/28/25 11:17 Oxygen Delivery Method Room Air 01/28/25 11:17 Tobacco/Smoking Status: Tobacco use Status Tobacco use date assessed 01/07/25 01/28/25 11:20 Tobacco use type Pipe (daily) 01/28/25 11:20 Thrive Assessment: Date of Thrive Assessment Date Thrive assessed 01/07/25 01/28/25 11:20 Coding Level of Care Code Est Pt Level 4 (98382) Complex EM visit Add On G2211 Diagnoses HTN (hypertension) I10 HLD (hyperlipidemia) E78.5 Itchy eyes H57.9 Elevated serum creatinine R79.89 Assessment & Plan Assessment & Plan (1) HTN (hypertension): Code(s): I10 - Essential (primary) hypertension Category: Medical Plan: Controlled on recheck. Continue hydrochlorothiazide 25 mg daily and amlodipine 5 mg daily. Low-sodium diet (2) HLD (hyperlipidemia): Code(s): E78.5 - Hyperlipidemia, unspecified Category: Medical Plan: Uncontrolled with LDL 125. Recommend lifestyle modifications at this time with diet low in saturated fats and highly processed foods as well as regular exercise and weight loss (3) Itchy eyes: Code(s): H57.9 - Unspecified disorder of eye and adnexa Category: Medical Plan: Trial Rema (4) Elevated serum creatinine: Code(s): R79.89 - Other specified abnormal findings of blood chemistry Category: Medical Plan: Suspect CKD related to uncontrolled hypertension. Unfortunately no recent comparisons available. We will recheck BMP in 1 month. He will also follow-up with Nephrology Plan Follow-up for repeat blood work in 1 month. Follow-up in the office in 6 months with last completed several days prior to visit Orders: Orders Basic Metabolic Panel 6 Months E78.5 - Hyperlipidemia, unspecified, I10 - Essential (primary) hypertension, R23.3 - Spontaneous ecchymoses Lipid Panel 6 Months E78.5 - Hyperlipidemia, unspecified, I10 - Essential (primary) hypertension, R23.3 - Spontaneous ecchymoses Liver Panel 6 Months E78.5 - Hyperlipidemia, unspecified, I10 - Essential (primary) hypertension, R23.3 - Spontaneous ecchymoses Complete Blood Count Auto Diff 6 Months E78.5 - Hyperlipidemia, unspecified, I10 - Essential (primary) hypertension, R23.3 - Spontaneous ecchymoses Basic Metabolic Panel Today I10 - Essential (primary) hypertension Medications: New olopatadine 0.1% separate doses by at least 6-8 hours 1 drp ophthalmic (eye) BID 5 mL 1RF
[2025-01-28 11:17] VITALS: BP 150/90; PULSE 77; RESP 16; TEMP 36.5; O2SAT 99
[2025-01-28 11:55] VITALS: BP 138/80
--- OUTSIDE RECORDS SUMMARY | 2025-01-28 13:30 | XMS_ITS | Patient Health Record ---
Author Organization [facility] Address [address] [place] [address] Care Team Providers Care Tongue Binder Name Role Phone Joan (RETIRED) Riley VILLALOBOS Primary Care Provide r Unavailable Volodymyr Evans Unavailable [phone] Allergies No Known Allergies Reason For Referral [...] Status Risk Notes Problem Colon cancer screening (600476462) Colon cancer screening (Z12.11) Active confirmed Problem Preprocedural examination (682721192630297) Preprocedural examination (Z01.818) Active confirmed Plan Of Treatment Future Test Test Name Order Date COLONOSCOPY 03/09/2022 Insurance Providers Payer Name Payer Address Payer Phone Subscriber Number Group Number Insured Name Patient Relationship to Insured Coverage Start Date Coverage End Date [facility] [address] [place], [place] [id number] ZACKERY JIMENEZ Self - patient is the insured Medical (General) History Medical History History ICD Code Hypertension Denies [place],DM,CVA,Lung disease,renal dise ase Negative colon[place] [address] [place] Surgical History Surgery Date(Month/Year) Tonsillectomy 1957 Left inguinal hernia repair with a mesh 2019 Right hip replacement after a fracture 2 020 Hand surgery/tendon repair 1983
--- OUTSIDE RECORDS SUMMARY | 2025-01-28 13:30 | XMS_ITS | Clinical Summary ---
Author Organization [facility] Facility Address [address] [place] [address] Care Team Providers Care Industrial Health Engineer Name Role Phone Riley Franco MD Primary Care Provider [phone] Allergies No known active allergies Medications amLODIPine [...] patient's age to complete this topic Insurance [facility] Care Teams Industrial Health Engineer Relationship Specialty Start Date End Date Riley Franco MD [address] [place] PCP - General 06/02/20
== END 2025-01-28 11:55 | disposition home or self-care (01) ==
LOC: HO.HMCHD 11:03
PROVIDERS: PCP Physician Assistant; Visit Provider Physician Assistant
DX: I10 Essential (primary) hypertension (principal); E78.5 Hyperlipidemia, unspecified; H57.9 Unspecified disorder of eye and adnexa; R79.89 Other specified abnormal findings of blood chemistry

== ENCOUNTER → 2025-01-28 11:02 | Outpatient (BNVA) | payer MEDICARE, SELFPAY | PROVIDERS: PCP Physician Assistant; Visit Provider Physician Assistant | DX: I10 Essential (primary) hypertension (principal); E78.5 Hyperlipidemia, unspecified; H57.9 Unspecified disorder of eye and adnexa; R79.89 Other specified abnormal findings of blood chemistry; Z79.899 Other long term (current) drug therapy | CPT/HCPCS: 99212 ==